=== PATIENT | male | born 1950 | race Caucasian/White ===

== ENCOUNTER → 2025-05-27 14:00 | Outpatient (REF) | payer MEDICARE, SELFPAY | LOC: HWRCS 14:00 | PROVIDERS: ATTENDING PHYSICIAN Internal Medicine Cardiovascular Disease; FAMILY PHYSICIAN Internal Medicine Infectious Disease | DX: I34.0 Nonrheumatic mitral (valve) insufficiency (principal) | CPT/HCPCS: 93306 ==

== ENCOUNTER → 2025-08-10 11:04 | Outpatient (REF) | payer MEDICARE, SELFPAY | LOC: SDSPAT 11:04 | PROVIDERS: ATTENDING PHYSICIAN Internal Medicine Cardiovascular Disease; FAMILY PHYSICIAN Internal Medicine Infectious Disease; OTHER PHYSICIAN Internal Medicine Cardiovascular Disease | DX: I48.0 Paroxysmal atrial fibrillation (principal) | CPT/HCPCS: 93005 ==

== ENCOUNTER 2025-08-15 07:07 | Day surgery (SDC) | payer MEDICARE, SELFPAY ==
[2025-08-10 11:13] VITALS: BMI 30.1
--- NOTE | 2025-08-15 19:00 | ITS.CL.CARDI ---
Literacy Consultant - Cardioversion
Cardioversion
Procedure Report:
Date of Procedure: 08/15/25
Procedure: Cardioversion
Indication: Symptomatic atrial fibrillation
Performing Physician: Ophelia Stallworth DO [facility]
Technique: The patient was brought to the holding area. Signed informed consent was obtained. A time out was called and performed. The patient was anesthetized by the anesthesia service. Anticoagulation status was reviewed and appropriate. R2 pads
were placed anteriorly and posteriorly. A 200 J synchronized biphasic shock restored normal sinus rhythm without significant bradycardia. There were no complications.
Conclusion: Uncomplicated cardioversion from atrial fibrillation to sinus rhythm.
Recommendation: Routine post cardioversion care. Continue chcf anticoagulation.
== END 2025-08-15 10:38 | disposition home or self-care (01) ==
LOC: CATH 07:07
PROVIDERS: ATTENDING PHYSICIAN Internal Medicine Cardiovascular Disease; FAMILY PHYSICIAN Internal Medicine Infectious Disease; OTHER PHYSICIAN Internal Medicine Cardiovascular Disease
DX: I48.0 Paroxysmal atrial fibrillation (principal); Z79.01 Long term (current) use of anticoagulants; R00.1 Bradycardia, unspecified; I49.3 Ventricular premature depolarization; E78.5 Hyperlipidemia, unspecified; E78.00 Pure hypercholesterolemia, unspecified; I25.10 Atherosclerotic heart disease of native coronary artery without angina pectoris; I25.2 Old myocardial infarction; Z86.0100 Personal history of colon polyps, unspecified; I08.0 Rheumatic disorders of both mitral and aortic valves; K57.90 Diverticulosis of intestine, part unspecified, without perforation or abscess without bleeding; Z86.73 Personal history of transient ischemic attack (TIA), and cerebral infarction without residual deficits; N40.1 Benign prostatic hyperplasia with lower urinary tract symptoms; Z21 Asymptomatic human immunodeficiency virus [HIV] infection status; B00.9 Herpesviral infection, unspecified; E66.9 Obesity, unspecified; Z68.30 Body mass index [BMI] 30.0-30.9, adult; E55.9 Vitamin D deficiency, unspecified; Z79.899 Other long term (current) drug therapy
CPT/HCPCS: 92960; 93005